=== PATIENT | female | born 1955 | race Caucasian/White ===

== ENCOUNTER 2023-01-11 14:12 | Outpatient (CLI) | payer MEDICARE ==
[~2023-01-11 14:12] MED LIST: Iopamidol 370 76% 100 ML VIAL ONE
== END 2023-01-11 14:13 | disposition home or self-care (01) ==
LOC: BICCT 14:12
PROVIDERS: ATTEND Family Medicine
DX: Q45.3 Other congenital malformations of pancreas and pancreatic duct (principal); D35.01 Benign neoplasm of right adrenal gland
CPT/HCPCS: 74170; Q9967

== ENCOUNTER 2023-05-03 10:27 | Outpatient (CLI) | payer MEDICARE | END 2023-05-03 10:28 | disposition home or self-care (01) | LOC: BICMAMMO 10:27 | PROVIDERS: ATTEND Family Medicine | DX: Z12.31 Encounter for screening mammogram for malignant neoplasm of breast (principal); Z13.820 Encounter for screening for osteoporosis; M81.0 Age-related osteoporosis without current pathological fracture; Z78.0 Asymptomatic menopausal state; N64.89 Other specified disorders of breast | CPT/HCPCS: 77063; 77067; 77080 ==

== ENCOUNTER 2023-05-05 09:39 | Outpatient (CLI) | payer MEDICARE | END 2023-05-05 09:40 | disposition home or self-care (01) | LOC: BICMAMMO 09:39 | PROVIDERS: ATTEND Family Medicine | DX: N64.89 Other specified disorders of breast (principal) | CPT/HCPCS: 77066; G0279 ==

== ENCOUNTER 2023-08-16 12:18 | Outpatient (CLI) | payer MEDICARE | END 2023-08-16 12:19 | disposition home or self-care (01) | LOC: MRI 12:18 | PROVIDERS: ATTEND Family Medicine | DX: N28.89 Other specified disorders of kidney and ureter (principal); N28.1 Cyst of kidney, acquired | CPT/HCPCS: 74183 ==